=== PATIENT | female | born 1945 | race African-American/Black ===

== ENCOUNTER 2016-06-06 10:11 | Emergency (ER) | payer MEDICARE, BC ==
[~2016-06-06] VITALS: Ht 167.6 cm; Wt 61.2 kg
[~2016-06-06 10:11] MED LIST: ACETAMINOPHEN-1 EAC1 ORAL; FLOMAX0.4 MG ORAL; NKM; RANITIDINE HCL150 MG ORAL
[2016-06-06 11:06] VITALS: BP 141/79
[2016-06-06 11:41] LABS: APPEARANCE,URINE CLEAR; KETONES,URINE 1+ (NEGATIVE); LEUKOCYTE ESTERASE ,URINE 1+ (NEGATIVE); NITRITE,URINE NEGATIVE (NEGATIVE); PH,URINE 5 (4.5-8.0); PROTEIN,URINE 1+ (NEGATIVE); UROBILINOGEN,URINE NORMAL MG/DL (0.0-1.0)
[2016-06-06 12:01] LABS: BACTERIA,URINE FEW /HPF; CALCIUM OXALATE CRYSTALS,UR FEW /LPF; SQUAMOUS EPITHELIAL CELL,UR FEW /LPF (NONE/OCC)
[2016-06-06] MEDS ORDERED: Ketorolac 30mg Inj IV ONE (12:15)
[2016-06-06] MEDS ORDERED: Morphine Sulfate 4mg/ml Inj IVP ONE (12:15)
[2016-06-06 12:22] LABS: MEAN CORPUSCULAR HEMOGLOBIN 29.2 PG (27.0-31.0); MEAN CORPUSCULAR HGB CONC 31.4 G/DL (32.0-36.0); MEAN CORPUSCULAR VOLUME 93 FL (80-99); PLATELET COUNT 257 K/UL (150-450); RED BLOOD COUNT 4.95 M/UL (4.20-5.40); RED CELL DISTRIBUTION WIDTH 13.8 % (11.6-14.8); WHITE BLOOD COUNT 8.3 K/UL (4.8-10.8)
[2016-06-06 12:30] VITALS: BP 132/84
[2016-06-06 12:35] LABS: ALANINE AMINOTRANSFERASE 26 U/L (3-33); ALBUMIN/GLOBULIN RATIO 1.5 (1.0-2.7); ANION GAP 16 (5-15); ASPARTATE AMINO TRANSFERASE 33 U/L (5-40); CALCIUM 9.2 mg/dL (8.6-10.2); CARBON DIOXIDE 24 mEQ/L (20-30); CHLORIDE 100 mEQ/L (98-107); CREATININE 1.1 mg/dL (0.5-0.9); HEMOLYSIS 7; LIPASE 21 U/L (< 60); POTASSIUM 4.1 mEQ/L (3.4-4.9); SODIUM 140 mEQ/L (135-145); TOTAL PROTEIN 6.9 g/dL (6.6-8.7)
[2016-06-06 13:15] LABS: BAND NEUTROPHILS % (MANUAL) 0 % (0-8); BASOPHILS % (MANUAL) 0 % (0-2); EOSINOPHILS % (MANUAL) 0 % (0-3); HYPOCHROMASIA 1+; LYMPHOCYTES % (MANUAL) 6 % (20-45); NEUTROPHILS % (MANUAL) 92 % (45-75); PLATELET ESTIMATE ADEQUATE; PLATELET MORPHOLOGY NORMAL; TOTAL CELLS COUNTED 100
[2016-06-06 13:30] VITALS: BP 120/74
[2016-06-06 14:15] VITALS: BP 120/74
--- NOTE | 2016-06-06 14:25 | Diagnostic Imaging Report ---
Indication: Left-sided abdominal pain Technique: Spiral acquisitions obtained through the abdomen and pelvis. No oral or IV contrast utilized, per urinary stone protocol. Multiplanar reconstructions were generated. Total dose length product 624 mGycm. CTDIvol(s) 13 mGy. Dose reduction achieved using automated exposure control Comparison: 05/05/2015 Findings: There is a 4 mm calculus in the left distal ureter. This results in mild to moderate hydroureter, mild hydronephrosis. There is some stranding of the perinephric fat on the left. 2 calculi are seen within the left renal collecting system. These were not evident previously. At least 4 calculi are seen in the right renal collecting system, only 2 of which were evident previously. No right ureteral calculus, hydronephrosis, hydroureter demonstrated. The lack of IV contrast limits assessment of the renal parenchyma. No gross renal parenchymal mass or cyst demonstrated. The previous exam demonstrated a calculus within the bladder. This is no longer evident. Lack of IV contrast limits assessment of the other solid organs. The liver is unremarkable. The gallbladder again demonstrates a stone which is more conspicuous then previously. Bile ducts are nondilated. The pancreas, spleen, adrenals are unremarkable. No retroperitoneal or mesenteric mass or adenopathy. No pelvic mass or adenopathy. Uterus and ovaries are unremarkable. Surgical clips are again demonstrated within the pelvis. No evidence of diverticulosis or diverticulitis. No small bowel distention. The appendix is not definitely visualized. No free or loculated intraperitoneal air or fluid is evident. There is a tiny sliding-type hiatal hernia noted. Stomach, duodenum are unremarkable. Impression: Positive for 4 mm left distal ureteral calculus, resulting in mild to moderate hydroureter, mild hydronephrosis, and perinephric fat stranding. Bilateral intrarenal calculi, new colon the left, and more numerous on the right as compared to prior exam of 05/05/2015. Note that previously demonstrated bladder calculus is no longer evident. Cholelithiasis, in retrospect present previously but much more conspicuous currently. Incidental finding of small sliding-type hiatal hernia, pelvic surgical clips Findings discussed by phone with Dr. Vincent in the emergency room at the time of interpretation The CT scanner at [facility] is accredited by the [employer] and the scans are performed using protocols designed to limit radiation exposure to as low as reasonably achievable to attain images of sufficient resolution adequate for diagnostic evaluation.
[2016-06-06] MEDS ORDERED: PERCOCET 5-3251 EACH ORAL (14:27)
[2016-06-06] MEDS ORDERED: Tamsulosin 0.4mg cap ORAL SCH (14:30)
--- NOTE | 2016-06-06 14:34 | Emergency Room Report ---
History of Present Illness General Chief Complaint: Pain Source: Patient Present Illness HPI [id number] presents with 1 day left abd pain, radiating to groin. Not radiating to back. No assoc fever/chills, urinary complaints, nausea/vomiting. Has had kidney stornes in the past. Never followed up with Urologist. Took leftover ibuprofen and flomax at home. Allergies: Coded Allergies: PEANUT (Verified Allergy, Unknown, 05/05/15) PENICILLIN G (Verified Allergy, Unknown, 05/05/15) Patient History Past Medical History: other - Kidney stones Past Surgical History: none Pertinent Family History: none Social History: Denies: alcohol use, drug use, smoking Last Menstrual Period: na Now: No Immunizations: UTD Reviewed Nursing Documentation: PMH: Agreed, PSxH: Agreed Nursing Documentation-PMH Past Medical History: No History, Except For Hx Cardiac Problems: Yes - mitral valve prolapse Physical Exam Vital Signs Date Time Temp Pulse Resp B/P Pulse Ox O2 Delivery O2 Flow Rate FiO2 06/06/16 10:40 98.2 86 18 141/79 98 Room Air Sp02 EP Interpretation: reviewed, normal General Appearance: normal inspection, well appearing, no apparent distress, alert, GCS 15, non-toxic Head: normocephalic, atraumatic Eyes: bilateral eye EOMI, bilateral eye PERRL ENT: normal ENT inspection, hearing grossly normal, normal voice Neck: normal inspection, full range of motion, supple, no bony tend Respiratory: normal inspection, lungs clear, normal breath sounds, no respiratory distress, no retraction, no wheezing Cardiovascular #1: regular rate, rhythm, no edema Gastrointestinal: normal inspection, normal bowel sounds, non tender, soft, no guarding, no hernia Genitourinary: no CVA tenderness Musculoskeletal: normal inspection, back normal, normal range of motion, Corine' s Sign negative Neurologic: normal inspection, alert, oriented x3, responsive, 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 Was hydrated with IVF. Advised continue to drink water at home CT: 4mm right distal left ureter with hydro, mey-nephric stranding Patient received IV toradol/morphine, IVF, flomax. Feels better. Did not require re-dosing of analgesia. I offered admission to patient for further analgesia, monitoring, Urology consult but patient adament about going home. Prefers to followup with PMD for Urology referral. Last Vital Signs Date Time Temp Pulse Resp B/P Pulse Ox O2 Delivery O2 Flow Rate FiO2 06/06/16 14:15 98.2 74 21 120/74 100 Room Air Status: improved Disposition: HOME, SELF-CARE Condition: Improved Scripts Oxycodone/Acetaminophen 5-325* (PERCOCET 5-325 MG TABLET*) 1 Each Tablet 1 TAB ORAL BID Y for severe pain for 7 Days, #14 TAB Prov: KAE BURRELL M.D. 06/06/16 Referrals: NON PHYSICIAN (PCP) Patient Instructions: Renal Colic, [id number] Additional Instructions: - Take Tamsulosin each morning as prescribed - Take ibuprofen as needed for pain and percocet for severe pain - Ask your doctor for a Urology referral KAE BURRELL M.D. Jun 06, 2016 14:34
== END 2016-06-06 14:36 | disposition home or self-care (01) ==
LOC: EMR 12:25
DX: N13.2 Hydronephrosis with renal and ureteral calculous obstruction (principal); K80.20 Calculus of gallbladder without cholecystitis without obstruction; K44.9 Diaphragmatic hernia without obstruction or gangrene; Z88.0 Allergy status to penicillin; Z91.010 Allergy to peanuts
CPT/HCPCS: 36415; 74176; 80053; 81001; 83690; 85007; 85025; 96360; 96374; 96375; 99284; J1885; J2270; J2405